=== PATIENT | male | born 1995 ===

== ENCOUNTER 2017-11-30 12:55 | Emergency (ER) | payer MEDICAID ==
[2017-11-30 13:05] VITALS: BP 148/89; PULSE 115; RESP 20; TEMP 98.1; O2SAT 99
[2017-11-30] MEDS ORDERED: LIDOCAINE IJ ONE (13:16)
[2017-11-30] MEDS ORDERED: Lidocaine Hydrochloride 5 ML INJ ONE (13:21)
--- NOTE | 2017-11-30 13:23 | ED PDOC ---
HPI: Skin/Bite Injury Time Seen by Provider: 11/30/17 13:03 Chief Complaint (Nursing): Finger,Hand,&Wrist Chief Complaint (Provider): Finger,Hand,&Wrist History Per: Patient History/Exam Limitations: no limitations Onset/Duration Of Symptoms: Days (x4) Current Symptoms Are (Timing): Still Present Location Of Injury: Left: Hand (middle digit) Quality Of Symptoms: Painful Additional Complaint(s): 21 year old male with no significant past medical history presents to the ED with pain and swelling to the left middle digit onset 4 days. Patient reports he tried to apply alcohol to express the pus which made the pain worse. He denies fever, trauma or any other medical complaints. PMD: none provided Past Medical History Reviewed: Historical Data, Nursing Documentation, Vital Signs Vital Signs: Last Vital Signs Temp 98.1 F 11/30/17 13:03 Pulse 115 H 11/30/17 13:03 Resp 20 11/30/17 13:03 BP 148/89 11/30/17 13:03 Pulse Ox 99 11/30/17 13:56 - Medical History PMH: No Chronic Diseases - Surgical History Surgical History: No Surg Hx - Family History Family History: States: Unknown Family Hx - Home Medications Home Medications: Ambulatory Orders Medication Instructions Recorded Sulfamethoxazole/Trimethoprim 2 tab PO BID #28 tab 11/30/17 [Bactrim DS 800 mg-160 mg] - Allergies Allergies/Adverse Reactions: Allergies Allergy/AdvReac Type Severity Reaction Status Date / Time No Known Allergies Allergy Verified 11/30/17 13:03 Review of Systems ROS Statement: Except As Marked, All Systems Reviewed And Found Negative Musculoskeletal: Positive for: Other (middle finger pain ) Physical Exam - Reviewed Nursing Documentation Reviewed: Yes Vital Signs Reviewed: Yes - Physical Exam Appears: Positive for: No Acute Distress Pulses-Radial (L): 2+ Pulses-Radial (R): 2+ Extremity: Positive for: Normal ROM, Capillary Refill (less than 2 seconds), Other (left third digit fluctuance and moderate erythema to lateral nail margin , nail is intact, no felon). Negative for: Deformity - ECG O2 Sat by Pulse Oximetry: 99 (RA) Pulse Ox Interpretation: Normal Medical Decision Making Medical Decision Making: Time: 13:16 Initial Plan: --Xylocaine-MPF 1% ampul 3 mg IJ Scribe Attestation: Documented by Nanci Menchaca, acting as a scribe for Elbert Lee Provider Scribe Attestation: All medical record entries made by the Scribe were at my direction and personally dictated by me. I have reviewed the chart and agree that the record accurately reflects my personal performance of the history, physical exam, medical decision making, and the department course for this patient. I have also personally directed, reviewed, and agree with the discharge instructions and disposition. Disposition - Clinical Impression Clinical Impression: Parony[facility]ia - Patient ED Disposition Is Patient to be Admitted: No - Disposition Referrals: Osiel Jimenez MD [Medical Doctor] - Disposition: Routine/Home Disposition Time: 13:54 Condition: IMPROVED Additional Instructions: Follow up with your doctor in 2 days for wound check or return to ED immediately if fever/pain develops or pain worsens. MORAL[facility], thank you for letting us take care of you today. Your provider was Iraj Garcia III, DO and you were treated for POSS SWOLLEN FINGER. The emergency medical care you received today was directed at your acute symptoms. If you were prescribed any medication, please fill it and take as directed. It may take several days for your symptoms to resolve. Return to the Emergency Department if your symptoms worsen, do not improve, or if you have any other problems. Please contact your doctor or call one of the physicians/clinics you have been referred to that are listed on the Patient Visit Information form that is included in your discharge packet. Bring any paperwork you were given at discharge with you along with any medications you are taking to your follow up visit. Our treatment cannot replace ongoing medical care by a primary care provider outside of the emergency department. Thank you for allowing the [facility] team to be part of your care today. If you had an X-Ray or CT scan: A Radiologist will review the ED reading if any change in treatment is needed we will contact you. If you had a blood, urine, or wound culture: It will take several days for the results, if any change in treatment is needed we will contact you. If you had an STI test: It will take 48 hours for the results. Please call after 1 week if you have not heard back. Prescriptions: Sulfamethoxazole/Trimethoprim [Bactrim DS 800 mg-160 mg] 2 tab PO BID #28 tab Instructions: Paronych[place] (DC) Forms: [facility] (Macedonian) Print Language: LITHUANIAN Procedures - Time-Out Type of Procedure: I&D Site of Procedure: L 3rd digit Correct Patient (with visual ID + MR# on ID Band): Yes Correct Procedure: Yes Correct Site Marked: Yes PA/Tech: Johnny - Incision and Drainage Site: L 3rd digit Blade Size: 11 I & D Procedure: betadine prep, sterile drapes applied, sterile dressing applied Progress: Mild amount of pus expressed from area. Reports good relief of pain after incision made.
== END 2017-11-30 14:24 | disposition home or self-care (01) ==
LOC: H.ER 12:55
DX: B95.4 Other streptococcus as the cause of diseases classified elsewhere (principal); L03.012 Cellulitis of left finger